=== PATIENT | female | born 1930 | race Caucasian/White ===

== ENCOUNTER → 2016-12-30 | Outpatient (REF) ==
[2016-12-30 18:52] LABS: THYROID STIMULATING HORMONE 2.87 uIU/mL (0.465-4.680)
== END ==
LOC: ZLAB.WCH 17:57
PROVIDERS: Nurse Practitioner Family
DX: Z02.89 Encounter for other administrative examinations (principal)

== ENCOUNTER → 2017-08-24 | Outpatient (REF) | LOC: ZLAB.WCH 18:02 | DX: Z01.89 Encounter for other specified special examinations (principal) ==

== ENCOUNTER → 2018-02-22 | Outpatient (REF) ==
[~2018-02-22] MED LIST: 00186-0370-20 IH; ALBUTEROL0.83 MG/ML IH; ALLEGRA 180MG180 MG PO; CALCIUM CARB500 MG PO; MASON NATURAL2000 IU; MIRALAX PA17 GM/Dose PO; NASONEX SPRAY17 GM NS; OCEAN NASAL SPR45 ML NS; SYNTHROID0.1 MG/TAB PO
== END ==
LOC: ZLAB.WCH 18:33
DX: Z01.89 Encounter for other specified special examinations (principal)

== ENCOUNTER → 2018-04-26 | Outpatient (CLI) | payer MEDICARE, BC | LOC: COL.VAS 11:58 | DX: I73.9 Peripheral vascular disease, unspecified (principal) ==